=== PATIENT | female | born 1985 | race Two or more races ===

== ENCOUNTER 2021-06-06 13:58 | Inpatient (IN) | payer OTHER ==
[~2021-06-06] VITALS: Ht 165.1 cm; Wt 84.4 kg
[2021-06-06] MEDS ORDERED: PRENATAL CAPLE1 EAC1 PO (14:11)
[2021-06-06] MEDS ORDERED: MELATONIN10 MG PO (14:15)
[2021-06-06] MEDS ORDERED: VITAMIN D310 MC6 PO (14:15)
[2021-06-06] MEDS ORDERED: ZINC50 M1 PO (14:15)
== END 2021-06-07 12:40 | disposition left against medical advice (07) | DRG 805 ==
LOC: LDR 13:58 → SURG 20:54
PROVIDERS: ADMIT Student in an Organized Health Care Education/Training Program; ATTEND Student in an Organized Health Care Education/Training Program
PROC: 10E0XZZ Delivery of Products of Conception, External Approach (ICD-10-PCS; principal; 2021-06-06)
PROC: 4A1HXCZ Monitoring of Products of Conception, Cardiac Rate, External Approach (ICD-10-PCS; 2021-06-06)
DX: O42.012 Preterm premature rupture of membranes, onset of labor within 24 hours of rupture, second trimester (principal); O60.12X0 Preterm labor second trimester with preterm delivery second trimester, not applicable or unspecified; Z37.1 Single stillbirth; O41.1220 Chorioamnionitis, second trimester, not applicable or unspecified; Z3A.22 22 weeks gestation of pregnancy; Z20.822 Contact with and (suspected) exposure to COVID-19

== ENCOUNTER 2021-11-25 04:40 | Emergency (ER) | payer OTHER ==
[~2021-11-25] VITALS: Ht 165.1 cm; Wt 80.3 kg
[~2021-11-25 04:40] MED LIST: MELATONIN10 MG PO; PRENATAL CAPLE1 EAC1 PO; VITAMIN D310 MC6 PO; ZINC50 M1 PO
== END 2021-11-25 09:23 | disposition home or self-care (01) ==
LOC: ER 04:40
DX: O99.891 Other specified diseases and conditions complicating pregnancy (principal); R50.9 Fever, unspecified; Z3A.09 9 weeks gestation of pregnancy

== ENCOUNTER 2022-02-19 12:41 | Outpatient (CLI) | payer OTHER ==
[2022-02-19] MEDS ORDERED: MAGNESIUM200 MG PO (20:35)
[2022-02-19] MEDS ORDERED: VITAMIN C500 M5 PO (20:36)
== END 2022-02-19 15:00 | disposition home or self-care (01) ==
LOC: PRENATAL 12:41
PROVIDERS: ATTEND Obstetrics & Gynecology Maternal & Fetal Medicine
DX: O35.9XX0 Maternal care for (suspected) fetal abnormality and damage, unspecified, not applicable or unspecified (principal); O35.3XX0 Maternal care for (suspected) damage to fetus from viral disease in mother, not applicable or unspecified; Z3A.20 20 weeks gestation of pregnancy

== ENCOUNTER 2022-02-19 16:47 | Inpatient (IN) | payer OTHER ==
[~2022-02-19] VITALS: Ht 165.1 cm; Wt 86.6 kg
[2022-02-19] MEDS ORDERED: MAGNESIUM200 MG PO (20:35)
[2022-02-19] MEDS ORDERED: VITAMIN C500 M5 PO (20:36)
== END 2022-03-08 16:54 | disposition home or self-care (01) | DRG 833 ==
LOC: OB/GYN 16:47 → LDR 16:47 → OB/GYN 20:29
PROVIDERS: ADMIT Student in an Organized Health Care Education/Training Program; ATTEND Student in an Organized Health Care Education/Training Program
PROC: 4A1HXCZ Monitoring of Products of Conception, Cardiac Rate, External Approach (ICD-10-PCS; principal; 2022-02-19)
DX: O26.872 Cervical shortening, second trimester (principal); Z20.822 Contact with and (suspected) exposure to COVID-19; Z3A.20 20 weeks gestation of pregnancy

== ENCOUNTER 2022-03-21 08:29 | Outpatient (CLI) | payer OTHER ==
[~2022-03-21 08:29] MED LIST changes: +MAGNESIUM200 MG PO; +VITAMIN C500 M5 PO
== END 2022-03-21 10:07 | disposition home or self-care (01) ==
LOC: PRENATAL 08:29
PROVIDERS: ATTEND Obstetrics & Gynecology Maternal & Fetal Medicine
DX: O26.849 Uterine size-date discrepancy, unspecified trimester (principal); O26.879 Cervical shortening, unspecified trimester; O09.219 Supervision of pregnancy with history of pre-term labor, unspecified trimester; Z3A.24 24 weeks gestation of pregnancy

== ENCOUNTER 2022-03-24 22:20 | Inpatient (IN) | payer OTHER ==
[~2022-03-24] VITALS: Ht 165.1 cm; Wt 90.7 kg
[2022-03-24] MEDS ORDERED: B12-FOLIC ACID1 EACH PO (23:32)
[2022-03-24] MEDS ORDERED: PRENA1 TRUE CO1 EACH PO (23:32)
[2022-03-24] MEDS ORDERED: VITAMIN C100 MG PO (23:33)
== END 2022-04-01 11:47 | disposition home or self-care (01) | DRG 833 ==
LOC: LDR 22:20 → OB/GYN 22:20
PROVIDERS: ADMIT Student in an Organized Health Care Education/Training Program; ATTEND Student in an Organized Health Care Education/Training Program
PROC: 4A1HXCZ Monitoring of Products of Conception, Cardiac Rate, External Approach (ICD-10-PCS; principal; 2022-03-24)
DX: O26.872 Cervical shortening, second trimester (principal); Z3A.26 26 weeks gestation of pregnancy; Z20.822 Contact with and (suspected) exposure to COVID-19

== ENCOUNTER 2022-04-16 10:27 | Outpatient (CLI) | payer OTHER ==
[~2022-04-16 10:27] MED LIST changes: +B12-FOLIC ACID1 EACH PO; +PRENA1 TRUE CO1 EACH PO; +VITAMIN C100 MG PO
== END 2022-04-16 12:45 | disposition home or self-care (01) ==
LOC: PRENATAL 10:27
PROVIDERS: ATTEND Obstetrics & Gynecology Maternal & Fetal Medicine
DX: O26.849 Uterine size-date discrepancy, unspecified trimester (principal); O09.529 Supervision of elderly multigravida, unspecified trimester; Z3A.28 28 weeks gestation of pregnancy

== ENCOUNTER 2022-05-14 09:34 | Outpatient (CLI) | payer OTHER | END 2022-05-14 11:00 | disposition home or self-care (01) | LOC: PRENATAL 09:34 | PROVIDERS: ATTEND Obstetrics & Gynecology Maternal & Fetal Medicine | DX: O26.849 Uterine size-date discrepancy, unspecified trimester (principal); O09.529 Supervision of elderly multigravida, unspecified trimester; O36.8199 Decreased fetal movements, unspecified trimester, other fetus; Z3A.32 32 weeks gestation of pregnancy ==

== ENCOUNTER 2022-05-26 10:02 | Outpatient (CLI) | payer OTHER | END 2022-05-26 11:03 | disposition home or self-care (01) | LOC: PRENATAL 10:02 | PROVIDERS: ATTEND Obstetrics & Gynecology Maternal & Fetal Medicine | DX: Z76.1 Encounter for health supervision and care of foundling (principal) ==

== ENCOUNTER 2022-06-16 10:27 | Inpatient (IN) | payer OTHER ==
[~2022-06-16] VITALS: Ht 165.1 cm; Wt 98.9 kg
== END 2022-06-18 11:20 | disposition home or self-care (01) | DRG 807 ==
LOC: OB/GYN 10:27 → LDR 10:27 → OB/GYN 18:17
PROVIDERS: ADMIT Obstetrics & Gynecology; ATTEND Obstetrics & Gynecology
PROC: 10E0XZZ Delivery of Products of Conception, External Approach (ICD-10-PCS; principal; 2022-06-16)
PROC: 0KQM0ZZ Repair Perineum Muscle, Open Approach (ICD-10-PCS; 2022-06-16)
PROC: 4A1HXCZ Monitoring of Products of Conception, Cardiac Rate, External Approach (ICD-10-PCS; 2022-06-16)
DX: O70.1 Second degree perineal laceration during delivery (principal); Z37.0 Single live birth; Z3A.37 37 weeks gestation of pregnancy; Z20.822 Contact with and (suspected) exposure to COVID-19

== ENCOUNTER → 2024-09-22 | Outpatient (CLI) | payer OTHER | END | disposition home or self-care (01) | LOC: PRENATAL 09-21 16:19 | PROVIDERS: ATTEND Obstetrics & Gynecology Maternal & Fetal Medicine | DX: Z76.1 Encounter for health supervision and care of foundling (principal) ==

== ENCOUNTER 2025-01-11 07:55 | Outpatient (CLI) | payer OTHER | END 2025-01-11 07:57 | disposition home or self-care (01) | LOC: PRENATAL 07:55 | PROVIDERS: ATTEND Obstetrics & Gynecology Maternal & Fetal Medicine | DX: O44.03 Complete placenta previa NOS or without hemorrhage, third trimester (principal); O36.8130 Decreased fetal movements, third trimester, not applicable or unspecified ==

== ENCOUNTER 2025-02-07 08:19 | Inpatient (IN) | payer OTHER ==
[2025-02-07] VITALS (8 sets, daily range): BP systolic 109–126; BP diastolic 57–77
[~2025-02-07] VITALS: Ht 165.1 cm; Wt 1.8 kg
[~2025-02-07 08:19] MED LIST changes: +BETAMETHASONE ACETATE,SOD PHOS 30 MG/5 ML ML ONE
[2025-02-07] MEDS ORDERED: CHLORHEXIDINE GLUCONATE 120 ML BOTTLE TOP ONE (08:28)
[2025-02-07] MEDS ORDERED: LIDOCAINE HCL 1% 10ML VIAL ONE (08:28)
[2025-02-07] MEDS ORDERED: ERYTHROMYCIN BASE OPHT 1GM EACH TUBE OP ONE (08:28)
[2025-02-07] MEDS ORDERED: OXYTOCIN 20 UNITS/1000ML RL PIGGYBAG IV ONE ×2 (08:28→13:30)
[2025-02-07] MEDS ORDERED: BETAMETHASONE ACETATE,SOD PHOS 30 MG/5 ML ML IM STA (08:44)
[2025-02-07] MEDS ORDERED: RINGERS SOLUTION,LACTATED 1,000 ML IV SCH (08:45)
[2025-02-07] MEDS ORDERED: AMPICILLIN SODIUM 1,000 MG VIAL IV SCH (09:00)
[2025-02-07] MEDS ORDERED: AMPICILLIN SODIUM 1,000 MG VIAL IV ONE (09:00)
[2025-02-07 09:03] LABS: BASO % 0.1 % (0.1-1.2); EOS # 0.01 (0.04-0.54); EOS % 0.1 % (0.7-7.0); LYMPH # 1.17 (1.18-3.74); LYMPH % 6.5 % (19.3-53.1); MEAN PLATELET VOLUME 10.80 fl (9.4-12.4); MONO # 0.71 (0.24-0.82); MONO % 3.9 % (4.7-12.5); NEUT # 16.08 (1.56-6.13); NEUT % 88.6 % (34.0-71.1); RED CELL DISTRIBUTION WIDTH 17.3 % (11.6-14.4)
[2025-02-07 09:09] LABS: URINE APPEARANCE Clear; URINE BILIRRUBIN Negative (NEGATIVE); URINE BLOOD Large; URINE COLOR Yellow; URINE GLUCOSE Negative (NEGATIVE); URINE LEUKOCYTE Small; URINE NITRATE Negative; URINE PROTEIN Trace (NEGATIVE); URINE UROBILINOGEN 0.2 E.U./dl
[2025-02-07 09:14] LABS: URINE BACTERIA 1529.3 uL (0.0-1933); URINE EPITHELIAL CELLS 52.4 uL (0.0-38.8); URINE RBC 2626.2 uL (0.0-20.8); URINE WBC 127.3 uL (0.0-23.2)
[2025-02-07 09:24] LABS: INR 0.98
[2025-02-07 09:25] LABS: URINE CAST 1.13 uL (0.0-1.40); URINE KETONE 40 (NEGATIVE)
[2025-02-07 10:17] LABS: ALT/SGPT 13.0 U/L (12-78); AST/SGOT 17.0 U/L (15-37); BILIRUBIN TOTAL 0.5 mg/dL (0.3-1.2); BUN CREA RATIO 16.0 (7.0-25.0); CREATININE SERUM 0.45 mg/dL (0.55-1.02); GFR 155.93; GLOBULINA 4.0 G/DL (2.4-3.5); GLUCOSE FASTING 104.0 mg/dL (65-100); OSMOLALITY SERUM 278.0 MOSM/KG (275-295)
[2025-02-07 18:22] LABS: BASO % 0.1 % (0.1-1.2); EOS # 0.00 (0.04-0.54); EOS % 0.0 % (0.7-7.0); LYMPH # 0.72 (1.18-3.74); LYMPH % 3.4 % (19.3-53.1); MEAN PLATELET VOLUME 11.00 fl (9.4-12.4); MONO # 0.32 (0.24-0.82); MONO % 1.5 % (4.7-12.5); NEUT # 20.08 (1.56-6.13); NEUT % 94.4 % (34.0-71.1); RED CELL DISTRIBUTION WIDTH 17.4 % (11.6-14.4)
[2025-02-08] VITALS: BP 122/72
[2025-02-08] MEDS ORDERED: PNV,CALCIUM 72/IRON/FOLIC ACID 1 TAB TABLET PO SCH (09:00)
[2025-02-08 09:05] VITALS: BP 116/73; O2SAT 98
[2025-02-09 00:24] VITALS: BP 110/74
[2025-02-09 08:52] VITALS: BP 134/83
== END 2025-02-09 13:32 | disposition home or self-care (01) | DRG 805 ==
LOC: LDR 08:19 → OB/GYN 08:19 → LDR 08:49 → OB/GYN 12:47
PROVIDERS: ADMIT Obstetrics & Gynecology; ATTEND Obstetrics & Gynecology
PROC: 10E0XZZ Delivery of Products of Conception, External Approach (ICD-10-PCS; principal; 2025-02-07)
PROC: 0HQ9XZZ Repair Perineum Skin, External Approach (ICD-10-PCS; 2025-02-07)
PROC: 4A1HXCZ Monitoring of Products of Conception, Cardiac Rate, External Approach (ICD-10-PCS; 2025-02-07)
DX: O70.0 First degree perineal laceration during delivery (principal); O60.14X0 Preterm labor third trimester with preterm delivery third trimester, not applicable or unspecified; Z37.0 Single live birth; Z3A.33 33 weeks gestation of pregnancy